=== PATIENT | male | born 1970 | race Caucasian/White ===

== ENCOUNTER 2017-06-05 20:49 | Emergency (ER) | payer BC ==
--- NOTE | 2017-06-05 21:03 | UC ---
Ear Complaint HPI - HPI Summary HPI Summary: 47 YEAR OLD MALE PRESENTS FOR RECHECK OF HIS RIGHT EAR. HE WAS SEEN FOR OTITIS EXTERNA AND PLACED ON DROPS. - History of Current Complaint Stated Complaint: RIGHT EAR ISSUE Time Seen by Provider: 06/05/17 21:02 Hx Obtained From: Patient Onset/Duration: Sudden Onset Severity Initially: Moderate Severity Currently: Moderate Pain Scale Used: 0-10 Numeric - 0 Aggravating Factors: Nothing Alleviating Factors: Other (Noted In Comments) - Allergies/Home Medications Allergies/Adverse Reactions: Allergies Allergy/AdvReac Type Severity Reaction Status Date / Time Pseudoephedrine Allergy Bleeding Verified 06/05/17 21:26 [From Actifed] Triprolidine [From Actifed] Allergy Bleeding Verified 06/05/17 21:26 Home Medications: Home Medications Aspirin TAB* [Aspirin 325 MG TAB*] 650 mg PO Q6H PRN 06/05/17 [History Confirmed 06/05/17] Ciproflox/Dexameth OTIC.SUSP* [Ciprodex Otic*] 1 drop .SEE ORDER Q12H 06/05/17 [ History Confirmed 06/05/17] PMH/Surg Hx/FS Hx/Imm Hx Previously Healthy: Yes Review of Systems Constitutional: Negative Skin: Negative Eyes: Negative ENT: Negative Respiratory: Negative Cardiovascular: Negative Gastrointestinal: Negative Genitourinary: Negative Motor: Negative Neurovascular: Negative Musculoskeletal: Negative Neurological: Negative Psychological: Negative All Other Systems Reviewed And Are Negative: Yes Physical Exam Triage Information Reviewed: Yes Eye Exam: Normal ENT Exam: Normal Dental Exam: Normal Neck exam: Normal Neck: Positive: 1 Respiratory Exam: Normal Cardiovascular Exam: Normal Abdominal Exam: Normal Musculoskeletal Exam: Normal Neurological Exam: Normal Psychological Exam: Normal Skin Exam: Normal Ear Complaint Course/Dx - Differential Dx/Diagnosis Provider Diagnoses: RIGHT EAR OTITEXTERNA RESOLVED. Discharge - Discharge Plan Condition: Stable Disposition: HOME Patient Education Materials: Otitis Externa (ED) Referrals: Non Staff,Doctor [Primary Care Provider] -
== END 2017-06-05 21:35 | disposition home or self-care (01) ==
LOC: UCCORT 20:49
DX: H60.91 Unspecified otitis externa, right ear (principal)
CPT/HCPCS: 99201; G0463